=== PATIENT | female | born 1950 | race Caucasian/White ===

== ENCOUNTER 2017-11-08 12:23 | Inpatient (IN) | payer MEDICARE, BC ==
[~2017-11-08] VITALS: Ht 167.6 cm; Wt 77.6 kg
[2017-11-08] MEDS ORDERED: CLINDAMYCIN PHOS 900MG/ D5W 50 50 ML IV STA (12:44)
[2017-11-08] MEDS ORDERED: TETANUS/DIPHTHERIA TOX ADULT 0.5 ML SYR IM ONE (12:45)
[2017-11-08] MEDS ORDERED: VANCOMYCIN 1GM/NS 250 ML 250 ML IV STA (12:49)
[2017-11-08] MEDS ORDERED: PIPER-TAZ 3.375 GM 50 ML IV STA (12:49)
--- NOTE | 2017-11-08 13:23 | Diagnostic Imaging Report ---
PROCEDURE:X-RAY RIGHT FOOT, COMPLETE COMPARISON:None. INDICATIONS:OSTEOMYELITIS FINDINGS: There is erosive change of the subungual tuft of the first distal phalanx with adjacent subcutaneous gas/soft tissue ulceration. No additional osseous destructive changes. Advanced hypertrophic/sclerotic changes of the first metatarsophalangeal joint. Scattered degenerative changes of the midfoot. Atherosclerotic vascular calcifications. CONCLUSION: Soft tissue ulceration with underlying osteomyelitis of the subungual tuft of the first distal phalanx. Dictated by: Toro Madsen M.D. on 11/08/2017 at 13:23 Electronically approved by: Toro Madsen M.D. on 11/08/2017 at 13:23
[2017-11-08 13:35] LABS: BILIRUBIN,URINE NEGATIVE (NEGATIVE); KETONES,URINE 3+ (NEGATIVE); LEUKOCYTE ESTERASE ,URINE TRACE (NEGATIVE); NITRITE,URINE NEGATIVE (NEGATIVE); URINE UROBILINOGEN 0.2 mg/dL (0.2 - 1)
[2017-11-08 13:46] LABS: CLARITY,URINE CLOUDY (CLEAR); COLOR,URINE YELLOW (YELLOW); PROTEIN,URINE DIPSTICK 1+ (NEGATIVE)
[2017-11-08 13:48] LABS: BACTERIA,URINE MODERATE /HPF; EPITHELIAL CELLS,URINE FEW /LPF
[2017-11-08 13:49] LABS: YEAST,URINE MANY
[2017-11-08 13:56] LABS: BASOPHILS # (AUTO) 0.1 (0.0-0.1); BASOPHILS % 0.5 % (0.0-1.0); EOSINOPHILS % 0.1 % (0.0-6.0); HEMATOCRIT 42.1 % (34.2-44.1); HEMOGLOBIN 13.7 g/dL (12.0-16.0); LYMPHOCYTES # (AUTO) 1.3 (1.0-3.2); LYMPHOCYTES % 5.6 % (18.0-39.1); MEAN CORPUSCULAR HEMOGLOBIN 31.4 pg (28-32); MEAN CORPUSCULAR HGB CONC 32.5 g/dL (31-35); MEAN CORPUSCULAR VOLUME 96.3 fL (81-99); MONOCYTES # (AUTO) 1.4 (0.2-0.8); MONOCYTES % 5.9 % (4.4-11.3); NEUTROPHILS # (AUTO) 20.6 (2.1-6.9); NEUTROPHILS % 85.7 % (38.7-80.0); PLATELET COUNT 348 x10e3/uL (140-360); RED BLOOD COUNT 4.37 x10e6/uL (3.6-5.1); RED CELL DISTRIBUTION WIDTH 12.2 % (11.7-14.4)
[2017-11-08 14:12] LABS: ALANINE AMINOTRANSFERASE 13 IU/L (0-55); ALBUMIN 2.3 g/dL (3.5-5.0); ALBUMIN/GLOBULIN RATIO 0.3 (0.8-2.0); ALKALINE PHOSPHATASE 128 IU/L (40-150); BLOOD UREA NITROGEN 33 mg/dL (7-26); BUN/CREATININE RATIO 22 (6-25); CALCIUM 10.2 mg/dL (8.4-10.2); CARBON DIOXIDE 20 mmol/L (22-29); CHLORIDE 91 mmol/L (98-107); EST GLOMERULAR FILTRATION RATE 35 ML/MIN (60-); SODIUM 133 mmol/L (136-145)
[2017-11-08 14:16] LABS: GLUCOSE 638 mg/dL (74-118)
[2017-11-08] MEDS ORDERED: SODIUM CHLORIDE 0.9% 1000ML 1,000 ML IV SCH (14:30)
[2017-11-08] MEDS ORDERED: INSULIN REGULAR, HUMAN 100 UNIT/1 ML 3ML VIAL IV ONE (14:30)
[2017-11-08] MEDS ORDERED: DEXTROSE 50% SYRINGE 50 ML IV PRN (14:45)
[2017-11-08] MEDS: SODIUM CHLORIDE 0.9% 1000ML 1,000 ML IV SCH ×2 (14:55→23:49)
[2017-11-08 16:49] LABS: LYMPHOCYTES % (MANUAL) 8 % (19-48); MONOCYTES % (MANUAL) 6 % (3.4-9.0); NEUTROPHILS % (MANUAL) 86 % (40-74)
[2017-11-08 16:50] LABS: PLATELET MORPHOLOGY COMMENT NORMAL; RBC MORPHOLOGY COMMENT NORMAL
[2017-11-08 16:51] LABS: PLATELET ESTIMATE ADEQUATE
[2017-11-08] MEDS: INSULIN REGULAR, HUMAN 100 UNIT/1 ML 3ML VIAL SQ SCH ×2 (18:37→22:42)
[2017-11-08] MEDS: PIPER-TAZ 3.375 GM 50 ML IV SCH (19:47)
[2017-11-08] MEDS ORDERED: LIPITOR40 MG PO (19:51)
--- NOTE | 2017-11-08 19:59 | History and Physical ---
HISTORY OF PRESENT ILLNESS: She is a 67-year-old female with a past medical history positive for diabetes, which apparently she did not take care of that. She has not taken any medication, history of hypertension, who came to the hospital because of progressive swelling and redness in the right big toe. She was found to have severe cellulitis and osteomyelitis on the right big toe and started on IV antibiotics. REVIEW OF SYSTEMS: CARDIOVASCULAR: No chest pain. No palpitations. RESPIRATORY: No shortness of breath, no cough. GASTROINTESTINAL: No nausea, vomiting or diarrhea. GENITOURINARY: No frequency or dysuria. SOCIAL HISTORY: She does not smoke and she does not drink. PAST MEDICAL HISTORY: Positive for diabetes which she has not been taking any medication for that. PHYSICAL EXAMINATION: HEART: Shows regular rhythm. No murmurs. No extra sounds. LUNGS: Clear bilaterally. ABDOMEN: Soft. EXTREMITIES: Show redness, swelling and necrotic areas on the right big toe. LABORATORY DATA: On the blood work we have BMP with a sodium 133, potassium 5.0, chloride 91. CO2 20. Anion gap 27.0. BUN 33, creatinine 1.50. GFR 35. Glucose 638. Lactic acid 15.0, calcium 10. 2, total bilirubin 0.3. AST 18, ALT 13, alkaline phosphatase 128. Total protein 9.4, albumin 2.3, globulin 7.1. Albumin and globulin ratio 0.3. On the CBC we have a white blood count 24,000. Hemoglobin 13.7, hematocrit 42.1, platelet count 348,000. Urinalysis shows positive leukocytes. Right foot x-ray showed soft tissue ____ with underlying osteomyelitis with subungual tuft of the 3rd distal phalanx. FINAL IMPRESSION: 1. Cellulitis and osteomyelitis of the right big toe. 2. Uncontrolled diabetes mellitus type 2 with nephropathy. 3. Chronic renal failure, stage 3 secondary to diabetic nephropathy. 4. Hyponatremia. PLAN OF TREATMENT: Going to continue with vancomycin 1 gram IV piggyback daily. Zosyn 3.375 grams IV piggyback q.6 hour. Normal saline 125 mL an hour. Continue with Humalog 8 units before meals. Levemir 10 units subcutaneously twice a day. Continue monitoring blood sugar a.c. and nightly. Diabetic and renal diet. We are going to consult Dr. Branch from infectious diseases and Dr. Lee, precision machinist, and then finally Dr. Amador for endocrinology. We are going to also order a Doppler on both lower extremities, renal ultrasound of the kidneys, and continue monitoring the CBC and the BNP tomorrow. Job#: [id number] JARED
--- OUTSIDE RECORDS SUMMARY | 2017-11-08 20:55 | XMS REPORT ---
Author [facility] [place] Address Unknown Phone Unavailable Care Team Providers Care Editing Intern Name Role Phone CECILIA GARRETT Unavailable Unavailable Problems This patient has no known problems. Allergies, Adverse Reactions, Alerts This patient has no known allergies or adverse reactions. Medications This patient has no known medications. Results Test Description Test Time Test Comments Text Results Atomic Results Result Comments FOOT RIGHT COMPLETE [place] [id number] [place] [id number] Patient Name: ERICK OVERTON MR #: [id number] : 1950 Age/Sex: 67/F Req #: [id number] [facility] Physician: Ordered by: OSKAR TAMEZ [employer] Report #: [id number] Location: ER Room/Bed: Procedure: [id number] DX/FOOT RIGHT COMPLETE Exam Date: 11/08/17 Exam Time: 1250 REPORT STATUS: Signed PROCEDURE: X-RAY RIGHT FOOT, COMPLETE COMPARISON: None. INDICATIONS: OSTEOMYELITIS FINDINGS: There is erosive change of the subungual tuft of the first distal phalanx with adjacent subcutaneous gas/soft tissue ulceration. No additional osseous destructive changes. Advanced hypertrophic/ sclerotic changes of the first metatarsophalangeal joint. Scattered degenerative changes of the midfoot. Atherosclerotic vascular calcifications. CONCLUSION: Soft tissue ulceration with underlying osteomyelitis of the subungual tuft of the first distal phalanx. Dictated by: Kyle Kearns M.D. on 11/08/2017 at 13:23 Electronically approved by: Kyle Kearns M.D. on 11/08/2017 at 13:23 Dictated By : KYLE KEARNS MD 1323 Transcribed By: CHILANGO on 11/08/17 1323 COPY TO: OSKAR TAMEZ NP
[2017-11-08 22:00] VITALS: BP 164/78
[2017-11-08] MEDS: INSULIN LISPRO 100 UNIT/1 ML 3ML VIAL SQ SCH (22:42)
[2017-11-08] MEDS: INSULIN DETEMIR 100 UNIT/ML PEN SQ SCH (22:43)
[2017-11-09] VITALS (9 sets, daily range): BP systolic 118–157; BP diastolic 69–97
[2017-11-09] MEDS ORDERED: VANCOMYCIN 1GM/NS 250 ML 250 ML IV SCH (02:00)
[2017-11-09] MEDS: PIPER-TAZ 3.375 GM 50 ML IV SCH ×4 (02:30→20:29)
[2017-11-09] MEDS: SODIUM CHLORIDE 0.9% 1000ML 1,000 ML IV SCH ×2 (06:32→17:16)
[2017-11-09 07:33] LABS: BASOPHILS # (AUTO) 0.1 (0.0-0.1); BASOPHILS % 0.4 % (0.0-1.0); EOSINOPHILS # (AUTO) 0.1 (0.0-0.4); EOSINOPHILS % 0.4 % (0.0-6.0); HEMATOCRIT 37.1 % (34.2-44.1); LYMPHOCYTES # (AUTO) 1.4 (1.0-3.2); LYMPHOCYTES % 6.6 % (18.0-39.1); MEAN CORPUSCULAR HEMOGLOBIN 31.1 pg (28-32); MEAN CORPUSCULAR HGB CONC 32.3 g/dL (31-35); MEAN CORPUSCULAR VOLUME 96.1 fL (81-99); MONOCYTES # (AUTO) 1.3 (0.2-0.8); MONOCYTES % 6.1 % (4.4-11.3); NEUTROPHILS # (AUTO) 18.3 (2.1-6.9); NEUTROPHILS % 84.5 % (38.7-80.0); PLATELET COUNT 311 x10e3/uL (140-360); RED BLOOD COUNT 3.86 x10e6/uL (3.6-5.1); RED CELL DISTRIBUTION WIDTH 12.4 % (11.7-14.4)
[2017-11-09 08:01] LABS: ALBUMIN 1.8 g/dL (3.5-5.0); ALBUMIN/GLOBULIN RATIO 0.3 (0.8-2.0); ANION GAP 16.2 mmol/L (8-16); CALCIUM 8.7 mg/dL (8.4-10.2); CREATININE, SERUM 0.98 mg/dL (0.57-1.11); MAGNESIUM 1.5 MG/DL (1.3-2.1); POTASSIUM 3.2 mmol/L (3.5-5.1)
[2017-11-09] MEDS: INSULIN LISPRO 100 UNIT/1 ML 3ML VIAL SQ SCH ×4 (08:44→20:28)
[2017-11-09] MEDS: INSULIN REGULAR, HUMAN 100 UNIT/1 ML 3ML VIAL SQ SCH ×4 (08:54→20:28)
[2017-11-09] MEDS: INSULIN DETEMIR 100 UNIT/ML PEN SQ SCH ×2 (08:59→20:28)
--- NOTE | 2017-11-09 11:53 | Diagnostic Imaging Report ---
EXAM: Renal Ultrasound INDICATION: \S\CKD \S\Y COMPARISON: None TECHNIQUE: Transverse and longitudinal images of the kidneys and bladder were obtained. FINDINGS: Right Kidney: Size: 12.2 cm Echogenicity: Normal Parenchymal thickness: Normal Collecting system: No hydronephrosis Stones: None Cyst/Mass: None Left Kidney: Size: 10.5 cm Echogenicity: Normal Parenchymal thickness: Normal Collecting system: No hydronephrosis Stones: None Cyst/Mass: 2.1 x 2 x 2.4 cm lower pole exophytic cyst. 1.6 x 1.3 x 1.6 cm lower pole cyst. Bladder: Decompressed, limiting evaluation. IMPRESSION: Unremarkable renal ultrasound exam. Left renal cysts. Signed by: Dr. Josue Valdez MD on 11/09/2017 11:50 AM
--- NOTE | 2017-11-09 14:54 | Consultation ---
DATE OF CONSULTATION: November 09, 2017 INFECTIOUS DISEASE CONSULTATION REASON FOR CONSULTATION: Osteomyelitis of her foot. Thank you so much for asking me to see this patient. HISTORY OF PRESENT ILLNESS: This patient, who is a very pleasant 67-year-old white female, comes in with redness and swelling of her big toe caused by crush injury. The patient apparently at home had right great toe redness and swelling after she had an injury to her great toe 3 days ago. The patient is currently lying in bed comfortably. She was brought by her family because of infection. The patient is complaining of some pain in the foot. Other than that, she is lying in bed comfortably. The patient has history of diabetes mellitus, history of neuropathy, with poorly compliant history of hypertension and obesity. She comes in with progressive swelling and redness of the right big toe after a heavy body fell on it. The patient came to the emergency room. She was evaluated. PAST MEDICAL HISTORY: Hypertension, diabetes mellitus. PAST SURGICAL HISTORY: Denies. ALLERGIES: NKA. SOCIAL HISTORY: There is no smoking, drug abuse, alcohol abuse. Patient is up to date on her immunization, according to her, tetanus and pneumonia and influenza. FAMILY HISTORY: Diabetes mellitus. REVIEW OF SYSTEMS: HEENT: Negative. PULMONARY: Negative. CARDIAC: Negative. : Negative. JOINTS: There is no acute erythema or edema. All negative. LABORATORY DATA: Reviewed. Her x-ray of the right foot showed erosive changes of the subinguinal tuft, 1st distal phalanx and adjacent subcutaneous tissue with soft tenderness and ulcer. Her potassium was 5, chloride 91, CO2 20, anion gap 27, BUN 33, creatinine was 1.50. Her urine is showing yeast. Her white count was 24,000 yesterday, hemoglobin 13, hematocrit 42, platelet of 348. Sodium 136, potassium 3.2, creatinine of 0.98. Blood culture is still pending. PHYSICAL EXAMINATION: GENERAL: She is currently alert, oriented, does not seem to be in acute distress. VITALS: Stable. Currently afebrile, but when she first came, she had temperature 100.5. HEENT: She does not appear icteric. NECK: Supple. No JVD. No lymphadenopathy. No thyromegaly. CHEST: Clear bilateral. HEART: S1/S2. No S3, no S4. No murmur. ABDOMEN: Soft. Bowel sounds present. No tenderness. EXTREMITIES: The right toe: There is erythema. There is edema on the big toe. IMPRESSION: 1. Cellulitis of the foot, osteomyelitis of the foot with gas. I agree with vancomycin and Zosyn. Concerned about early sepsis. Will recheck CBC and recheck chem panel. Podiatry has been consulted. Would need also vascular workup. She will need surgical evaluation. Would need also a PICC line. 2. Diabetes. 3. Hypertension. 4. Will follow with you. Job#: [id number] EV
[2017-11-09] MEDS: VANCOMYCIN 1GM/NS 250 ML 250 ML IV SCH (15:06)
[2017-11-09] MEDS ORDERED: ACETAMINOPHEN 325 MG TAB PO PRN (16:15)
--- NOTE | 2017-11-09 16:28 | Progress Note ---
DATE: November 09, 2017 INTERNAL MEDICINE PROGRESS NOTE SUBJECTIVE: Patient is doing well. No significant complaints. PHYSICAL EXAM: HEART: Shows regular rhythm. Normal S1 and S2 sounds. LUNGS: Clear bilaterally. ABDOMEN: Soft. EXTREMITIES: Show the dressing covering the right foot. VITAL SIGNS: Blood pressure 121/82, temperature 98.7, heart rate 103 per minute, respiratory rate 18 per minute, oxygen saturation 97%. LAB WORK: We have a BMP with a sodium 136, potassium 3.2, chloride 97, CO2 26, BUN 29, creatinine 0.99, glucose 332. On the CBC: White blood count 21.6, hemoglobin 12.0, hematocrit 37.1, platelet count 311,000. AST 18, ALT 11, total bilirubin 0.3, alkaline phosphatase 109. FINAL IMPRESSION: 1. Right big toe severe cellulitis with osteomyelitis. 2. Uncontrolled diabetes mellitus type 2. 3. Hypokalemia. PLAN OF TREATMENT: Continue Zosyn 3.375 grams IV piggyback q.6 hour, vancomycin 1 gram IV piggyback once a day. Normal saline 125 mL an hour. Continue monitoring blood sugar a.c. and nightly. Levemir 10 units twice a day and Humalog 8 units before each meal. Patient probably is going to need a [id number] hospital because of the osteomyelitis of the right foot. Dr. Branch, infectious disease specialist, recommended 6 weeks of IV antibiotics, and we are going to refer her to [facility] for that. Job#: [id number] EV
[2017-11-09] MEDS ORDERED: POTASSIUM CHLORIDE 20 MEQ TAB CR PO NR (16:30)
[2017-11-09] MEDS ORDERED: POTASSIUM CHLORIDE 20 MEQ TAB CR PO ONE (19:30)
--- NOTE | 2017-11-09 23:33 | Diagnostic Imaging Report ---
EXAMINATION: CHEST SINGLE (PORTABLE) INDICATION: Shortness of breath COMPARISON: None FINDINGS: TUBES and LINES: None. LUNGS: Lungs are not well inflated. Lungs are clear. There is no evidence of pneumonia or pulmonary edema. PLEURA: No pleural effusion or pneumothorax. HEART AND MEDIASTINUM: The cardiomediastinal silhouette is unremarkable. BONES AND SOFT TISSUES: No acute osseous lesion. Soft tissues are unremarkable. UPPER ABDOMEN: No free air under the diaphragm. IMPRESSION: No acute thoracic abnormality. Signed by: Dr. Miki Friedman M.D. on 11/09/2017 10:33 PM
[2017-11-10] VITALS (8 sets, daily range): BP systolic 111–174; BP diastolic 65–107
[2017-11-10] MEDS: PIPER-TAZ 3.375 GM 50 ML IV SCH ×4 (01:10→21:17)
[2017-11-10] MEDS: SODIUM CHLORIDE 0.9% 1000ML 1,000 ML IV SCH (01:10)
[2017-11-10] MEDS: INSULIN LISPRO 100 UNIT/1 ML 3ML VIAL SQ SCH ×4 (07:30→21:17)
[2017-11-10 07:55] LABS: BASOPHILS # (AUTO) 0.1 (0.0-0.1); BASOPHILS % 0.3 % (0.0-1.0); EOSINOPHILS # (AUTO) 0.1 (0.0-0.4); EOSINOPHILS % 0.3 % (0.0-6.0); HEMOGLOBIN 11.3 g/dL (12.0-16.0); LYMPHOCYTES # (AUTO) 1.7 (1.0-3.2); LYMPHOCYTES % 6.3 % (18.0-39.1); MEAN CORPUSCULAR HEMOGLOBIN 31.3 pg (28-32); MEAN CORPUSCULAR HGB CONC 32.3 g/dL (31-35); MONOCYTES # (AUTO) 1.3 (0.2-0.8); NEUTROPHILS # (AUTO) 22.6 (2.1-6.9); NEUTROPHILS % 85.3 % (38.7-80.0); PLATELET COUNT 315 x10e3/uL (140-360); RED BLOOD COUNT 3.61 x10e6/uL (3.6-5.1); RED CELL DISTRIBUTION WIDTH 12.6 % (11.7-14.4)
[2017-11-10 08:21] LABS: ANION GAP 17.2 mmol/L (8-16); CALCIUM 8.8 mg/dL (8.4-10.2); CREATININE, SERUM 1.15 mg/dL (0.57-1.11); POTASSIUM 5.2 mmol/L (3.5-5.1)
[2017-11-10] MEDS ORDERED: BUPIVACAINE HCL 0.5% INJ 30 ML VIAL INJ ONE (09:09)
[2017-11-10] MEDS ORDERED: BACITRACIN 50,000 UNIT VIAL ONE ×2 (09:09→09:49)
[2017-11-10] MEDS ORDERED: MUPIROCIN 2% OINT 22 GM TUBE ONE (09:09)
[2017-11-10] MEDS ORDERED: BETAMETHASONE DISODIUM PHOS 6 MG/ML VIAL ONE (09:09)
[2017-11-10 10:28] LABS: BAND NEUTROPHILS % (MANUAL) 2 %; LYMPHOCYTES % (MANUAL) 10 % (19-48); NEUTROPHILS % (MANUAL) 88 % (40-74); PLATELET ESTIMATE ADEQUATE; PLATELET MORPHOLOGY COMMENT NORMAL; RBC MORPHOLOGY COMMENT NORMAL
[2017-11-10] MEDS: INSULIN REGULAR, HUMAN 100 UNIT/1 ML 3ML VIAL SQ SCH ×4 (10:38→21:17)
[2017-11-10] MEDS: INSULIN DETEMIR 100 UNIT/ML PEN SQ SCH ×2 (11:00→23:23)
--- NOTE | 2017-11-10 11:01 | Diagnostic Imaging Report ---
EXAM: FOOT RIGHT AP LAT DATE: 11/10/2017 10:25 AM INDICATION: \S\S/P PARTIAL TRANSMET AMP \S\[id number] \S\1032 \S\Y COMPARISON: None FINDINGS: Transmetatarsal amputation present mid first metatarsal shaft. Soft tissue gas and bandage material present in the overlying soft tissues. Lisfranc alignment intact. Calcaneal enthesophytes present. IMPRESSION: Postsurgical changes first ray. Signed by: Dr. Santos Campbell MD on 11/10/2017 10:58 AM
[2017-11-10] MEDS ORDERED: MORPHINE SULFATE 2 MG/ML SYR IV PRN (11:30)
[2017-11-10] MEDS ORDERED: SOD POLYSTYRENE SULFONATE SUSP 15 GM/60 ML BTL PO ONE (14:30)
[2017-11-10] MEDS: VANCOMYCIN 1GM/NS 250 ML 250 ML IV SCH (15:15)
[2017-11-10] MEDS ORDERED: PROPOFOL IV EMULSION 10 MG/ML 20 ML VIAL ONE (15:18)
[2017-11-10] MEDS ORDERED: LIDOCAINE HCL 2% LOCAL INJ 5 ML SDV VIAL INJ ONE (15:18)
[2017-11-10] MEDS ORDERED: SEVOFLURANE INHAL SOLN 250 ML PEN BTL ONE (15:18)
[2017-11-10] MEDS ORDERED: ONDANSETRON HCL INJ 2 MG/ML VIAL ONE (15:18)
--- NOTE | 2017-11-10 15:51 | Consultation ---
DATE OF CONSULTATION: November 09, 2017 ADMITTING PHYSICIAN: Dr. Sterling REASON FOR CONSULTATION: Gangrene with osteomyelitis, right foot with cellulitis up to the midfoot, the patient being an uncontrolled diabetic. HISTORY OF PRESENT ILLNESS: This is a 67-year-old white female who was seen at bedside, who apparently has not been taking care of her sugar. When questioning if she checked her sugar in the last 6 months, she says no secondary to the inconvenience. She has had an infection according to the patient for 3 to 4 days, presented through the emergency room, is currently denying any history of fever, chills, nausea or vomiting. PAST MEDICAL HISTORY: Remarkable for noninsulin-dependent diabetes times 15+ years, was only taking metformin at home, denies any other medications. SOCIAL HISTORY: Denies any smoking, drinking, or recreational drug use. Lives with . Has no kids. ALLERGIES: PATIENT DENIES. FAMILY HISTORY: Remarkable for diabetes. CURRENT MEDICATIONS: Include IV vancomycin and Zosyn. PAST SURGICAL HISTORY: Remarkable for left eye surgery secondary to cataract. Other than that, patient denies. REVIEW OF SYSTEMS: CARDIAC: Denies any palpitations or arrhythmias. RESPIRATORY: Denies any shortness of breath, productive cough. GASTROINTESTINAL: Denies any diarrhea, constipation. GENITOURINARY: Denies any problems voiding. VITAL SIGNS: Has a temp of 100.3, pulse rate 101, respiration 18, blood pressure 118/76, O2 saturation 96%. LABS: Noted. Has a white blood cell count of 21.68, hemoglobin 12.0, hematocrit 37.1 with a platelet count of 311,000. PODIATRIC PHYSICAL EXAMINATION: Reveals the following: VASCULATURE: Pedal pulses of both the dorsalis pedis and posterior tibial arteries are barely palpable. Skin temperature between warm and cool to touch. NEUROLOGICAL: Reveals a complete loss of protective sensation when utilizing Venetia-Rachel 5.07 monofilament wire. MUSCULOSKELETAL: Reveals muscle mass to be symmetrical. Muscle strength to be 3/5 to 4/5 to all muscle groups. DERMATOLOGICAL: Reveals a gangrenous toe with abscess formation surrounding the first metatarsophalangeal joint, positive false smell. Some fluctuance felt upon palpation. X-rays were negative for any gas in tissue, osteoarthritic changes to the first metatarsophalangeal joint and has osteolysis to the distal phalanx. ASSESSMENT: 1. Gangrene. 2. Osteomyelitis. 3. Abscess with ascending cellulitis with diabetic neuropathy. 4. Peripheral vascular disease. PLAN: Patient will be taken for surgical intervention tomorrow. Patient understands no warrantees or guarantees can be given. Procedure will be performed is I and D, amputation of the right great toe, partial resection of first metatarsal. They would have to be left open and treated conservatively for possibly delayed primary closure after the infection is resolved. If not resolved, may need a more proximal amputation which may even include a transmetatarsal or Chopart amputation which could lead to [id number] amputation. Patient was given time to ask questions, all questions were answered. Once again, no guarantees were given. Patient will be kept n.p.o. after midnight. Will continue local wound care with diluted wet-to-dry Betadine, continue IV antibiotics. Job#: [id number]
[2017-11-10] MEDS ORDERED: MORPHINE SULFATE INJ 10 MG/ML ONE (15:53)
[2017-11-10] MEDS ORDERED: FENTANYL CITRATE/PF 100MCG/2 ML INJ ONE (15:53)
[2017-11-10] MEDS ORDERED: MIDAZOLAM HCL 2 MG/2 ML VIAL ONE (15:53)
--- NOTE | 2017-11-10 16:01 | Progress Note ---
DATE: November 10, 2017 INTERNAL MEDICINE PROGRESS NOTE She is status post right big toe amputation and partial transverse amputation also. Patient was found to have osteomyelitis on the right toe. Patient is doing well now. PHYSICAL EXAMINATION VITALS: Blood pressure 126/70, temperature is 96 degrees, heart rate 92 per minute, respiratory rate is 16 per minute, oxygen saturation 94%. HEART: Shows regular rhythm. Normal S1 and S2 sounds. LUNGS: Clear bilaterally. ABDOMEN: Soft. EXTREMITIES: Show the dressing on the right foot. BLOOD WORK: We have a BMP with a sodium of 139, potassium 5.2, chloride 104, CO2 23, BUN 32, creatinine 1.15, glucose 329. On the CBC, white blood count 26.5, hemoglobin 11.3, hematocrit 35, and platelet count 315,000. AST 18, ALT 11, total bilirubin 0.3, alkaline phosphatase 109. FINAL IMPRESSION 1. Right big toe cellulitis with osteomyelitis. 2. Uncontrolled diabetes mellitus, type 2 with diabetic nephropathy. 3. Leukocytosis. 4. Hyperkalemia. PLAN OF TREATMENT: Continue Zosyn 3.375 g IVPB q.6 h. Vancomycin 1 g IVPB daily. We are going to discontinue the fluids. We are give Kayexalate 30 g times 1. Repeat potassium level today at 5 p.m. Continue Levemir 10 units at bedtime and Humalog 8 units at bedtime. We are going to increase the Humalog to 12 units before each meal. Job#: [id number] DONALD
[2017-11-11] VITALS (8 sets, daily range): BP systolic 123–148; BP diastolic 63–89
--- NOTE | 2017-11-11 00:32 | Operative Report ---
DATE OF PROCEDURE: November 10, 2017 PREOPERATIVE DIAGNOSES 1. Abscess, right foot. 2. Osteomyelitis, right foot. 3. Gangrene, right foot. POSTOPERATIVE DIAGNOSES 1. Abscess, right foot. 2. Osteomyelitis, right foot. 3. Gangrene, right foot. OPERATIVE PROCEDURES 1. Incision and drainage of abscess down to bone. 2. Amputation, right great toe. 3. Partial resection of 1st metatarsal, right foot. ANESTHESIA: General. HEMOSTASIS: Pneumatic thigh tourniquet at 350 mmHg. ESBL: Less than 25 mL. PROCEDURE IN DETAIL: Patient was taken into the operating room and placed on the operating table in the supine position. Following the induction of general anesthesia by the anesthesiologist, Webril wraps were placed on the patient's right thigh followed by application of a right thigh tourniquet. The right lower extremity was then prepped and draped in the usual aseptic manner. The following procedure was then performed: PROCEDURE #1: Incision and drainage of right foot. Attention was directed to the dorsal aspect of the 1st MPJ where a 6 cm linear incision was performed. Incision was deepened down to the bone. Deep abscess was encountered. Approximately, 10-15 mL of purulent drainage was obtained and deep cultures were taken for aerobic and anaerobic growth. Necrotic tissue surrounding the 1st metatarsophalangeal was excised via sharp and blunt dissection down to bone. Loose osseous bone fragments were also noted surrounding the 1st metatarsophalangeal joint. PROCEDURE #2: Amputation, right great toe. A racket shaped incision was then performed surrounding the metatarsophalangeal joint. The toe was disarticulated and sent for pathological analysis. More abscess was encountered tracking down to the extensor longus tendons and flexor longus tendons going all the way up to the midfoot of the right lower extremity. Via sharp and blunt dissection, the abscess was I and D once again down to bone secondary to necrosis surrounding the 1st metatarsophalangeal joint. PROCEDURE #3: Partial resection of the 1st metatarsal was then achieved. Via the use of an oscillating saw, th3e head of 1st metatarsal of the right foot was excised from the operation site in toto. Once the head was removed, more purulent drainage was obtained. Once again, the abscess was I and D down to the midfoot. At this point, the thigh tourniquet was released and all bleeders were bovied or tied as necessary. Utilizing a 1000 mL of saline mixed with 50,000 units of Bacitracin, the areas were then copiously flushed and suctioned. Secondary to the severity infection and some minimal bleeding achieved, the wound was left open. Approximately, 15 mL of 0.5% plain Marcaine were then used to achieve local anesthesia of the above-mentioned surgical area. The wound was packed lightly with Betadine and antibiotic solution soaked gauze followed by dry 4 x 4's, and a Kerlix. Patient was then transferred from the OR to the recovery room with vital signs stable and neurovascular status intact. No intraoperative complications were encountered. Blood loss from the surgery was minimal. Patient will remain in the hospital getting IV antibiotics. Dr. French will be e business consultant for vascular evaluation for possible stenting if possible. Patient will end up needing further surgical intervention, which may include a more proximal amputation, depending on how she starts responding. Job#: [id number] DONALD
[2017-11-11] MEDS: PIPER-TAZ 3.375 GM 50 ML IV SCH ×2 (01:49→09:29)
--- NOTE | 2017-11-11 02:32 | Consultation ---
DATE OF CONSULTATION: November 10, 2017 CARDIOLOGY CONSULTATION REASON FOR CONSULTATION: Peripheral arterial disease. HISTORY OF PRESENT ILLNESS: This is a 67-year-old woman with a history of hypertension, hyperlipidemia and diabetes mellitus, who presented with pain and swelling of her right great toe. She reports she has had a wound on her right great toe for weeks. This has been progressively more swollen with bleeding, as well as erythema. She therefore presented to the ER for further evaluation. She was found to have cellulitis and osteomyelitis of the right great toe. Cardiology is consulted for possible peripheral arterial disease. The patient denies any chest pain, shortness of breath, palpitations, edema, orthopnea, PND, lightheadedness, or syncope. REVIEW OF SYSTEMS: Negative except as per HPI. PAST MEDICAL HISTORY: Hypertension, hyperlipidemia, diabetes mellitus. PAST SURGICAL HISTORY: Cataract surgery. ALLERGIES: PLEASE SEE EMR. MEDICATIONS: Please see medication list. SOCIAL HISTORY: Denies tobacco, alcohol or illicit drugs. FAMILY HISTORY: Unknown per the patient. PHYSICAL EXAMINATION VITALS: Temperature 96.7 degrees, pulse 92, respiratory rate 15, blood pressure 126/70, and oxygen saturation 94% on room air. GENERAL: A well-developed, well-nourished woman in no acute distress. HEENT: Normocephalic and atraumatic. Pupils are equal. No scleral icterus. NECK: Supple. No thyromegaly or cervical lymphadenopathy. No carotid bruits. LUNGS: Clear to auscultation bilaterally. No wheezes or crackles. CARDIOVASCULAR: Normal rate. Regular rhythm. No murmur. Normal S1 and S2. ABDOMEN: Soft and nontender. EXTREMITIES: No edema. Right foot with dressing noted. NEURO: Nonfocal exam. LABS: WBC 26.5, hemoglobin 11.3, hematocrit 35, and platelets 315,000. Sodium 139, potassium 5.2, chloride 104, CO2 23, BUN 32, creatinine 1.15. One blood culture growing Staphylococcus aureus. Bilateral lower extremity arterial Doppler with infrapopliteal disease with possible 75% stenosis of the right dorsalis pedis. EKG is normal sinus rhythm, lateral T-wave changes are nonspecific. IMPRESSION 1. Peripheral arterial disease suggested by noninvasive Doppler evaluation. 2. Gangrene and osteomyelitis of the right great toe with abscess formation and ascending cellulitis. 3. Diabetes mellitus, uncontrolled. 4. Hypertension. 5. Hyperlipidemia. 6. Acute kidney injury. RECOMMENDATIONS: Intravenous antibiotics per primary service. Podiatry plans to take for amputation of the right great toe tomorrow. Check fasting lipid panel. The patient likely will need further evaluation of her infrapopliteal disease. Thank you for this consult. We will continue to follow. Job#: [id number] DONALD
[2017-11-11] MEDS: INSULIN REGULAR, HUMAN 100 UNIT/1 ML 3ML VIAL SQ SCH ×4 (07:30→21:47)
[2017-11-11] MEDS: INSULIN LISPRO 100 UNIT/1 ML 3ML VIAL SQ SCH ×4 (07:30→21:47)
[2017-11-11] MEDS: INSULIN DETEMIR 100 UNIT/ML PEN SQ SCH ×2 (09:00→21:47)
[2017-11-11 11:15] LABS: BASOPHILS # (AUTO) 0.1 (0.0-0.1); BASOPHILS % 0.4 % (0.0-1.0); EOSINOPHILS # (AUTO) 0.3 (0.0-0.4); EOSINOPHILS % 1.7 % (0.0-6.0); HEMATOCRIT 30.1 % (34.2-44.1); HEMOGLOBIN 9.6 g/dL (12.0-16.0); LYMPHOCYTES # (AUTO) 1.6 (1.0-3.2); LYMPHOCYTES % 8.3 % (18.0-39.1); MEAN CORPUSCULAR HEMOGLOBIN 30.7 pg (28-32); MEAN CORPUSCULAR HGB CONC 31.9 g/dL (31-35); MEAN CORPUSCULAR VOLUME 96.2 fL (81-99); MONOCYTES # (AUTO) 0.9 (0.2-0.8); MONOCYTES % 4.7 % (4.4-11.3); NEUTROPHILS # (AUTO) 15.7 (2.1-6.9); NEUTROPHILS % 82.5 % (38.7-80.0); PLATELET COUNT 284 x10e3/uL (140-360); RED BLOOD COUNT 3.13 x10e6/uL (3.6-5.1)
[2017-11-11 11:35] LABS: ALBUMIN 1.5 g/dL (3.5-5.0); ALBUMIN/GLOBULIN RATIO 0.3 (0.8-2.0); CALCIUM 7.6 mg/dL (8.4-10.2); CREATININE, SERUM 0.97 mg/dL (0.57-1.11)
--- NOTE | 2017-11-11 13:32 | Progress Note ---
DATE: November 11, 2017 CARDIOLOGY PROGRESS NOTE SUBJECTIVE: The patient denies chest pain or shortness of breath. OBJECTIVE VITALS: Temperature 97.6 degrees, pulse 90, respiratory rate 16, blood pressure 133/78, and oxygen saturation 95% on room air. GENERAL: Awake, alert and in no acute distress. LUNGS: Clear to auscultation bilaterally. No wheezes or crackles. CARDIOVASCULAR: Normal rate and regular rhythm. No murmur. Normal S1 and S2. ABDOMEN: Soft and nontender. EXTREMITIES: No edema. Right foot dressing with serosanguineous drainage. CARDIAC MEDICATIONS: None. LABS: WBC 19, hemoglobin 9.6, hematocrit 38.1, and platelets 284,000. IMPRESSION 1. Peripheral arterial disease suggestive by noninvasive Doppler evaluation. 2. Gangrene and osteomyelitis of the right great toe with abscess formation and ascending cellulitis. 3. Diabetes mellitus, uncontrolled. 4. Hypertension. 5. Hyperlipidemia. 6. Acute kidney injury. RECOMMENDATIONS: Intravenous antibiotics per primary service. Will arrange peripheral angiogram for further evaluation of the patient's peripheral arterial disease. Timing to be determined based on parking lot laborer and scheduling availability. Start aspirin if agreeable with podiatry. Thank you for this consult. We will continue to follow. Job#: [id number] DONALD
[2017-11-11] MEDS ORDERED: CEFAZOLIN SOD 1 GM/NS 50ML 50 ML IV SCH (14:00)
[2017-11-11] MEDS: CEFAZOLIN SOD 1 GM VIAL IV SCH ×2 (14:19→21:48)
[2017-11-11] MEDS: HYDROCODONE/APAP 5MG-325MG TAB PO PRN (14:50)
[2017-11-11] MEDS ORDERED: POTASSIUM CHLORIDE 20 MEQ TAB CR PO ONE (15:00)
[2017-11-11 16:08] LABS: BAND NEUTROPHILS % (MANUAL) 1 %; EOSINOPHILS % (MANUAL) 3 % (0-7); LYMPHOCYTES % (MANUAL) 12 % (19-48); MONOCYTES % (MANUAL) 8 % (3.4-9.0); NEUTROPHILS % (MANUAL) 75 % (40-74)
[2017-11-11 16:09] LABS: PLATELET ESTIMATE ADEQUATE; PLATELET MORPHOLOGY COMMENT NORMAL; RBC MORPHOLOGY COMMENT NORMAL
[2017-11-12] VITALS: BP 148/89
[2017-11-12] MEDS: HYDROCODONE/APAP 5MG-325MG TAB PO PRN ×3 (00:04→19:34)
[2017-11-12 04:30] VITALS: BP 151/89
[2017-11-12] MEDS: CEFAZOLIN SOD 1 GM VIAL IV SCH ×2 (05:36→15:00)
[2017-11-12 07:05] LABS: BASOPHILS # (AUTO) 0.1 (0.0-0.1); BASOPHILS % 0.4 % (0.0-1.0); EOSINOPHILS # (AUTO) 0.6 (0.0-0.4); EOSINOPHILS % 3.7 % (0.0-6.0); LYMPHOCYTES # (AUTO) 2.1 (1.0-3.2); LYMPHOCYTES % 13.2 % (18.0-39.1); MEAN CORPUSCULAR HEMOGLOBIN 30.7 pg (28-32); MEAN CORPUSCULAR HGB CONC 31.3 g/dL (31-35); MEAN CORPUSCULAR VOLUME 98.2 fL (81-99); MONOCYTES % 6.2 % (4.4-11.3); NEUTROPHILS # (AUTO) 11.6 (2.1-6.9); NEUTROPHILS % 74.1 % (38.7-80.0); PLATELET COUNT 283 x10e3/uL (140-360); RED BLOOD COUNT 3.26 x10e6/uL (3.6-5.1); RED CELL DISTRIBUTION WIDTH 12.9 % (11.7-14.4)
[2017-11-12] MEDS: INSULIN REGULAR, HUMAN 100 UNIT/1 ML 3ML VIAL SQ SCH ×2 (07:25→11:20)
[2017-11-12] MEDS: INSULIN LISPRO 100 UNIT/1 ML 3ML VIAL SQ SCH ×3 (07:25→16:20)
[2017-11-12 07:28] LABS: BLOOD UREA NITROGEN 19 mg/dL (7-26); BUN/CREATININE RATIO 22 (6-25); CALCIUM 8.3 mg/dL (8.4-10.2); CARBON DIOXIDE 25 mmol/L (22-29); CHLORIDE 107 mmol/L (98-107); CREATININE, SERUM 0.85 mg/dL (0.57-1.11); EST GLOMERULAR FILTRATION RATE > 60 ML/MIN (60-); GLUCOSE 161 mg/dL (74-118); SODIUM 140 mmol/L (136-145)
[2017-11-12 08:46] VITALS: BP 148/87
[2017-11-12] MEDS: INSULIN DETEMIR 100 UNIT/ML PEN SQ SCH (09:05)
--- NOTE | 2017-11-12 09:19 | Progress Note ---
DATE: November 12, 2017 SUBJECTIVE: Patient seen at bedside, doing better. Denying history of fever, chills, nausea or vomiting. OBJECTIVE VITAL SIGNS: Afebrile. Pulse rate 82, respirations 18. Blood pressure 148/87 with O2 saturation of 96%. LABS: Noted. White blood cell count dropping from max of 26.5 to 15.7 on this date. Hemoglobin 10.0, hematocrit 32.0 with a platelet count of 283. CFT to all remaining toes of the left lower extremity is less than 5 seconds. Still some cellulitis to the dorsal aspect of left foot. Pedal pulses are diminished to both the DP and PT. ASSESSMENT: Peripheral arterial disease with diabetic neuropathy status post incision and drainage, amputation of left great toe, partial resection of 1st metatarsal left open. PLAN: Will await vascular evaluation per Dr. French for possible revascularization procedure. Will continue to treat the wound conservatively. Patient may need a further amputation depending on vascular results. Continue IV antibiotics. Continue local wound care and offloading. Will continue to follow. Job#: [id number]
[2017-11-12 14:20] LABS: FREE T4 (FREE THYROXINE) 0.96 ng/dL (0.9-1.8); THYROID STIMULATING HORMONE 0.859 uIU/mL (0.350-4.940)
--- NOTE | 2017-11-12 14:27 | Discharge Summary ---
A 67-year-old female with a past medical history positive for diabetes, came to the hospital because of cellulitis on the right foot. Patient underwent a right toe amputation and partial metatarsal amputation of the right foot by Dr. Lee. Patient has been started on IV antibiotics. She is going to be transferred to [facility] for continuation of the IV antibiotic and wound care. PHYSICAL EXAMINATION VITALS: Blood pressure 148/87, temperature 97.4, heart rate 82 per minute, respiratory rate 18 per minute, oxygen saturation 96%. On the BMP, sodium 140, potassium 5, chloride 107, CO2 25, BUN 18, creatinine 0.85, glucose 161. On the CBC, white blood count 15.7, hemoglobin 10, hematocrit 32, and platelet count 283,000. AST 24, ALT 20, total bilirubin 0.3, alkaline phosphatase 101. FINAL IMPRESSION 1. Right foot cellulitis with osteomyelitis, status post amputation of right 1st toe and partial amputation of the metatarsal bone. 2. Uncontrolled diabetes mellitus, type 2. 3. Hypertension. 4. Sepsis. PLAN OF TREATMENT: Continue cefazolin 1 g IVPB q.8 h. Continue monitoring blood sugar a.c. and at night. Continue with morphine 2 mg IV q.4 h., Levemir 10 units twice a day, and Humalog 12 units a.c. before meals. I am going to put her on lisinopril also 10 mg daily because of hypertension. The patient is going to go to [facility] today if accepted. CRISTOBAL ELLIS MD Job#: [id number] [place]
--- NOTE | 2017-11-12 15:03 | Consultation ---
DATE OF CONSULTATION: November 12, 2017 ENDOCRINE CONSULTATION PATIENT OF: Dr. Sterling. Thank you very much for referring this patient. HISTORY OF PRESENT ILLNESS: This is a 67-year-old white female who is referred to me for evaluation of uncontrolled diabetes mellitus. Patient is a known diabetic for almost 10 years and takes metformin at home. She also has history of hypertension. She came to the hospital because of progressive swelling and redness of the right toe and she was found to have possible osteomyelitis. Her blood sugars were elevated at the time of admission. She also has history of hypertension. She is a nonsmoker. She also has history of renal insufficiency. PHYSICAL EXAMINATION GENERAL: Today, the patient is alert, awake, a little bit apprehensive. VITAL SIGNS: Her heart rate is around 78, blood pressure 140/80 mmHg. HEENT: Essentially unremarkable. NECK: Thyroid is palpable. Clinically, she is near euthyroid. CHEST: Bilateral vesicular breathing. She has mild bronchospasm. CARDIAC: Both first and second heart sounds. There is no third or fourth heart sound. Ejection sound grade 2/6. LABORATORY DATA: Her blood sugars at the time of admission were in 250 range. Her hemoglobin is 13.7 with hematocrit of 42.1. CLINICAL IMPRESSION 1. Diabetes mellitus type 2, uncontrolled with complication. 2. Noncompliance. 3. History of osteomyelitis of the right toe and cellulitis. 4. Hypertension. The plan at this time is to do a hemoglobin A1c and thyroid function test. Monitor her blood sugars closely and adjust insulin dose. Thanks for referring this patient. I will be following this patient with you. Job#: [id number] RAMESH CAM
[2017-11-12] MEDS ORDERED: INSULIN LISPRO 100 UNIT/1 ML 3ML VIAL SQ SCH (16:30)
[2017-11-12 17:01] VITALS: BP 162/96
[2017-11-12 20:00] VITALS: BP 160/99
--- NOTE | 2017-11-12 21:41 | Progress Note ---
DATE: November 12, 2017 CARDIOLOGY PROGRESS NOTE SUBJECTIVE: The patient denies chest pain or shortness of breath. OBJECTIVE VITAL SIGNS: Temperature 97.4 degrees, pulse 62, respiratory rate 18, blood pressure 148/87, oxygen saturation 96% on room air. GENERAL: Awake, alert and in no acute distress. LUNGS: Clear to auscultation bilaterally. No wheezes or crackles. CARDIOVASCULAR: Normal rate and regular rhythm. No murmur. Normal S1 and S2. ABDOMEN: Soft and nontender. EXTREMITIES: No edema. Right foot with dressing in place. CARDIAC MEDICATIONS: Lisinopril 10 mg p.o. daily. LABS: WBC 15.7, hemoglobin 10, hematocrit 32, platelets 283,000, sodium 140, potassium 5, chloride 107, CO2 of 25, BUN 19, creatinine 0.85. IMPRESSION 1. Peripheral arterial disease suggested by noninvasive Doppler evaluation. 2. Gangrene and osteomyelitis of the right great toe with abscess formation and ascending cellulitis. 3. Diabetes mellitus, uncontrolled. 4. Hypertension. 5. Hyperlipidemia. 6. Acute kidney injury, resolved. RECOMMENDATIONS: Intravenous antibiotics per primary service. The patient will need peripheral angiogram for further evaluation of the patient's peripheral arterial disease . Time to be determined based on dock or pier laborer and schedule availability. Start aspirin if agreeable with podiatry. Thank you for this consult. We will continue to follow. Job#: [id number]
[2017-11-13] MEDS ORDERED: LISINOPRIL 10 MG TAB PO SCH (09:00)
[2017-12-11] MEDS ORDERED: KCL PO (12:57)
[2017-12-11] MEDS ORDERED: NOVOLOG100 UNIT/1 SC (12:57)
[2017-12-11] MEDS ORDERED: LYRICA75 MG PO (12:58)
[2017-12-11] MEDS ORDERED: METOPROLOL TART50 MG PO (12:58)
[2017-12-11] MEDS ORDERED: LISINOPRIL10 MG PO (12:58)
[2017-12-11] MEDS ORDERED: PLAVIX75 MG PO (12:58)
[2017-12-11] MEDS ORDERED: LEVEMIR100 UNIT/1 SC (12:59)
[2017-12-11] MEDS ORDERED: LIPITOR10 MG PO (12:59)
[2017-12-11] MEDS ORDERED: AMLODIPINE BESYL5 MG PO (13:00)
[2017-12-11] MEDS ORDERED: ASPIR 8181 MG PO (13:01)
[2017-12-11] MEDS ORDERED: PROSOURCE275 GM PO (13:02)
[2017-12-11] MEDS ORDERED: NORCO 5-325 TA1 EACH PO (13:02)
[2017-12-11] MEDS ORDERED: MORPHINE-NS2 MG/1 ML IV (13:02)
[2017-12-12] MEDS ORDERED: CEFAZOLIN1 GM/50 ML IVP (06:55)
== END 2017-11-12 19:44 | DRG 854 ==
LOC: ER 12:23 → ERHOLD 15:02 → ER 15:02 → MED/SURG3 20:52
PROVIDERS: ADMIT Internal Medicine; ATTEND Internal Medicine
PROC: 0Y6M0Z9 Detachment at Right Foot, Partial 1st Ray, Open Approach (ICD-10-PCS; principal; 2017-11-08)
PROC: 0JBQ0ZZ Excision of Right Foot Subcutaneous Tissue and Fascia, Open Approach (ICD-10-PCS; 2017-11-08)
PROC: 0Y6P0Z2 Detachment at Right 1st Toe, Mid, Open Approach (ICD-10-PCS; 2017-11-08)
DX: A41.9 Sepsis, unspecified organism (principal); E11.52 Type 2 diabetes mellitus with diabetic peripheral angiopathy with gangrene; N17.9 Acute kidney failure, unspecified; E13.69 Other specified diabetes mellitus with other specified complication; E87.1 Hypo-osmolality and hyponatremia; L03.115 Cellulitis of right lower limb; M86.171 Other acute osteomyelitis, right ankle and foot; M86.671 Other chronic osteomyelitis, right ankle and foot; E11.21 Type 2 diabetes mellitus with diabetic nephropathy; E11.65 Type 2 diabetes mellitus with hyperglycemia; Z79.4 Long term (current) use of insulin; E11.22 Type 2 diabetes mellitus with diabetic chronic kidney disease; I12.9 Hypertensive chronic kidney disease with stage 1 through stage 4 chronic kidney disease, or unspecified chronic kidney disease; N18.3 Chronic kidney disease, stage 3 (moderate); Z91.19 Patient's noncompliance with other medical treatment and regimen; R65.20 Severe sepsis without septic shock
CPT/HCPCS: 36415; 71045; 76770; 80048; 80053; 80061; 81001; 82948; 83036; 83605; 83735; 84132; 84439; 84443; 85025; 86140; 87040; 87071; 87075; 87086; 87186; 87205; 88305; 88311; 90471; 90714; 93005; 93306; 93925; 96367; 97139; 99284; J0690; J0720; J2001; J2250; J2270; J2405; J2543; J3370; J7030

== ENCOUNTER → 2017-12-12 | Day surgery (SDC) | payer MEDICARE, BC ==
[~2017-12-12] MED LIST: AMLODIPINE BESYL5 MG PO; ASPIR 8181 MG PO; BACITRACIN 50,000 UNIT VIAL ONE; BETAMETHASONE DISODIUM PHOS 6 MG/ML VIAL ONE; BUPIVACAINE HCL 0.5% INJ 30 ML VIAL INJ ONE; CEFAZOLIN1 GM/50 ML IVP; FENTANYL CITRATE/PF 100MCG/2 ML INJ ONE; KCL PO; LEVEMIR100 UNIT/1 SC; LIDOCAINE HCL 2% LOCAL INJ 5 ML SDV VIAL INJ ONE; LIPITOR10 MG PO; LIPITOR40 MG PO; LISINOPRIL10 MG PO; LYRICA75 MG PO; METOCLOPRAMIDE HCL 10 MG/2ML VIAL ONE; METOPROLOL TART50 MG PO; MIDAZOLAM HCL 2 MG/2 ML VIAL ONE; MORPHINE-NS2 MG/1 ML IV; NORCO 5-325 TA1 EACH PO; NOVOLOG100 UNIT/1 SC; ONDANSETRON HCL INJ 2 MG/ML VIAL ONE; PLAVIX75 MG PO; PROPOFOL IV EMULSION 10 MG/ML 20 ML VIAL ONE; PROSOURCE275 GM PO; SEVOFLURANE INHAL SOLN 250 ML PEN BTL ONE
--- NOTE | 2017-12-12 09:54 | Diagnostic Imaging Report ---
PROCEDURE:X-RAY RIGHT FOOT, TWO VIEWS COMPARISON:None. INDICATIONS:POST RIGHT FOOT SURGERY FINDINGS: See conclusion. CONCLUSION: AP and lateral post-operative views of the right foot with overlying bandage material show post-surgical changes of amputation of the right first digit and distal diaphysis of the right first metatarsal. Degenerative changes are present. Atherosclerotic calcifications. There is surrounding soft-tissue swelling consistent with recent surgery. Please refer to performing physician's notes for full details of this procedure. Dictated by: Kwame Vaz M.D. on 12/12/2017 at 9:54 Electronically approved by: Kwame Vaz M.D. on 12/12/2017 at 9:54
--- NOTE | 2017-12-12 10:13 | Operative Report ---
DATE OF PROCEDURE: December 12, 2017 PREOPERATIVE DIAGNOSES: 1. Grade 4 ulcer, right foot. 2. Osteomyelitis, right foot. 3. Abscess, right foot. POSTOPERATIVE DIAGNOSES: 1. Grade 4 ulcer, right foot. 2. Osteomyelitis, right foot. 3. Abscess, right foot. OPERATIVE PROCEDURES: 1. Incision and drainage of abscess down to bone. 2. Partial resection of 1st metatarsal, right foot. 3. Rotational flap closure, right foot. ANESTHESIA: General. HEMOSTASIS: Pneumatic calf tourniquet at 250 mmHg. PROCEDURE IN DETAIL: Patient was taken into the operating room and placed on the operating room table in supine position. Following induction of general anesthesia by the anesthesiologist, Webril wraps were placed on the patient's right calf, followed by application of right calf tourniquet. The right lower extremity was then prepped and draped in the usual aseptic manner, and the following procedures were then performed. Procedure #1: I and D of abscess, right foot. Attention was directed to the medial aspect of the right foot where a 3 to 4 cm linear incision was performed within the ulceration itself. Abscess was encountered and cultured for aerobic and anaerobic growth. Necrotic tissue was then sharply excised until good viable tissue was achieved. Procedure #2: Partial resection of 1st metatarsal, right foot. Attention was then directed to the base of the 1st met cuneiform joint where 1st metatarsal bone was noted to be exposed and showing a grayish discoloration. At this point, utilizing an oscillating saw, partial resection of the 1st metatarsal was removed. All rough and bony edges were then rasped smooth via the use of a rotating bur. The area was then copiously flushed with sterile antibiotic solution and suctioned. At this point, the calf tourniquet was then released and all bleeders or pumpers were ligated and bovied as necessary. Procedure #3: Rotational flap closure. The incision then was extended proximally medially and plantarly laterally. A plantar flap was then created. The skin was undermined down to subcutaneous tissue both dorsally and plantarly to create a plantar flap to allow for closure with minimal skin tension. The flap was then reapproximated utilizing 2-0 Vicryl for subcutaneous tissue and 2-0 nylon for skin in a horizontal mattress type fashion. Then, approximately 10 mL to 50 mL of 0.5% plain Marcaine were used to achieve local anesthesia of above-mentioned surgical area. Sterile dressing was applied, and patient was then transferred from the OR to recovery room with vital signs stable and neurovascular status intact. No intraoperative complications were encountered. Blood loss from the surgery was less than 30 mL. Patient will be transferred back to [facility] for IV antibiotics for a couple of more days and will be discharged, and patient understands no warranties or guarantees were given. If not responsive, may need a more proximal amputation. Job#: [id number]
== END | disposition home or self-care (01) ==
LOC: OR 05:52
PROVIDERS: ATTEND Podiatrist Foot Surgery
DX: M86.671 Other chronic osteomyelitis, right ankle and foot (principal); L02.611 Cutaneous abscess of right foot; L97.519 Non-pressure chronic ulcer of other part of right foot with unspecified severity; E11.9 Type 2 diabetes mellitus without complications; I10 Essential (primary) hypertension; Z79.82 Long term (current) use of aspirin; Z79.4 Long term (current) use of insulin; Z79.02 Long term (current) use of antithrombotics/antiplatelets
CPT/HCPCS: 10060; 14040; 28122; 73620; 87071; 87075; 87205; 88305; 88311; 93005; J0720; J2001; J2250; J2405; J2765